=== PATIENT | female | born 1950 | race Caucasian/White ===

== ENCOUNTER 2016-12-24 17:17 | Emergency (ER) | payer OTHER, MEDICARE ==
[2016-12-24] MEDS ORDERED: ATORVASTATIN CA10 M1 PO (17:58)
[2016-12-24] MEDS ORDERED: ELIQUIS5 M1 PO (17:59)
[2016-12-24] MEDS ORDERED: LISINOPRIL10 M1 PO (17:59)
[2016-12-24] MEDS ORDERED: METOPROLOL SUCC50 M2 PO (17:59)
[2016-12-24] MEDS ORDERED: MULTAQ400 M1 PO (17:59)
[2016-12-24] MEDS ORDERED: CENTRUM SILVER1 EAC3 PO (18:00)
[2016-12-24] MEDS ORDERED: DONEPEZIL HCL10 M1 PO (18:00)
[2016-12-24] MEDS ORDERED: NAMENDA XR28 M1 PO (18:00)
[2016-12-24] MEDS ORDERED: CALCIUM600 M2 PO (18:01)
[2016-12-24] MEDS ORDERED: CALCIUM + D SO1 EACH PO (18:01)
--- NOTE | 2016-12-24 18:24 | ED MVC/FALL/TRAUMA COMPLAINT ---
History of Present Illness General Chief Complaint: Syncope and Near-Syncope Stated Complaint: BIBA NEAR SYNCOPE Source: patient, family Exam Limitations: dementia Vital Signs & Intake/Output Vital Signs & Intake/Output Vital Signs Date Time Temp Pulse Resp B/P Pulse O2 O2 Flow FiO2 Ox Delivery Rate 12/24 2202 96.4 62 16 111/60 95 Room Air 12/24 1944 99.8 84 18 113/60 98 Room Air Room Air 12/24 1937 70 113/60 12/24 1848 97.0 64 18 110/60 98 Room Air 12/24 1721 96.7 61 16 104/54 99 Room Air ED Intake and Output 12/25 0000 12/24 1200 Intake Total 1000 Output Total Balance 1000 Intake, IV 1000 Allergies Coded Allergies: No Known Allergies (12/24/16) Reconcile Medications Apixaban (Eliquis) 5 MG TABLET 1 TAB PO BID BLOOD THINNER (Reported) Atorvastatin Calcium 10 MG TABLET 1 TAB PO DAILY CHOLESTEROL (Reported) Calcium Carb/Vitamin D3/Vit K1 (Calcium + D Soft Chewable Tab) (Unknown Strength ) TAB.CHEW (Unknown Dose) PO DAILY SUPPLEMENT (Reported) Calcium Carbonate (Calcium) (Unknown Strength) TABLET (Unknown Dose) PO DAILY SUPPLEMENT (Reported) Donepezil HCl 10 MG TABLET 2 TAB PO DAILY MEMORY (Reported) Dronedarone HCl (Multaq) 400 MG TABLET 1 TAB PO BID HEART (Reported) Lisinopril 10 MG TABLET 1 TAB PO DAILY BP (Reported) Memantine HCl (Namenda XR) 28 MG CAP.SPR.24 1 CAP PO DAILY MEMORY (Reported) Metoprolol Succinate 50 MG TAB.ER.24H 1 TAB PO DAILY HEART/BP (Reported) Multivit-Min/FA/Lycopen/Lutein (Centrum Silver Tablet) 0.4 MG-300 MCG-250 MCG TABLET 1 TAB PO DAILY SUPPLEMENT (Reported) Triage Note: 66 YEAR OLD FEMALE BIBA S/P NEAR SYNCOPE. PER EMS PT FELL OUTSIDE OF [facility]. PT ARRIVES TO ED ALERT AND ORIENTED TO PERSON AND PLACE PER BASELINE. C-COLLAR IN PLACE, DENIES PAIN. BP 80/50 ON SCENE AFTER 1 LITER 104/60. PT STATES SHE DOES NOT REMEMBER IF SHE FELT DIZZY OR HAD CHEST PAIN AT TIME INCIDENT. PT HAS HISTORY OF DEMENTIA. RESIDENT TO BEDSIDE FOR EVAL. Triage Nurses Notes Reviewed? yes HPI: 66 yo F PMH HTN, HLD, CAD/HI (s/p stenting), A-fib (on eliquis), Dementia presenting with pre-syncope, fall. Patient was walking out of restaurant, complained of dizziness, grabbed onto nearby family member, slumped to the ground, (+) left frontal head trauma, no LOC. On EMS arrival BP 84/50, 1L NS given with improvement to 100s SBP. C/O mild left frontal head pain, denies associated fevers, chills, chest pain, SOB, palpitations, N/V/D/C, abdominal pain, urinary Sx. Hx of dementia, mild short term memory loss at baseline, does not seem more confused per family. (NEVIN FELICIANO,JEAN CARLOS) Past History Travel History Traveled to [place] past 21 day No Medical History Any Pertinent Medical History? see below for history Neurological: dementia Cardiovascular: AFIB, CAD Surgical History Surgical History: none Psychosocial History What is your primary language Albanian Tobacco Use: Never used Family History Hx Contributory? No (NEVIN FELICIANO,JEAN CARLOS) Review of Systems Review of Systems Constitutional: Reports: no symptoms. Eyes: Reports: no symptoms. Ears, Nose, Throat, Mouth: Reports: no symptoms. Respiratory: Reports: no symptoms. Cardiovascular: Reports: no symptoms. Gastrointestinal/Abdominal: Reports: no symptoms. Genitourinary: Reports: no symptoms. Musculoskeletal: Reports: no symptoms. Skin: Reports: no symptoms. All Other Systems: Reviewed and Negative (NEVIN FELICIANO,JEAN CARLOS) Physical Exam Physical Exam General Appearance: well developed/nourished, no apparent distress, alert, awake Head: evidence of injury, swelling, tenderness, Left frontal/supraorbital abrasion, hemostatic, mild TTP without crepitus or instability Eyes: Bilateral: normal appearance, PERRL, EOMI. Ears, Nose, Throat, Mouth: Tympanic normal Neck: no midline tenderness, C-collar in place Respiratory: normal breath sounds, chest non-tender, no respiratory distress Cardiovascular: regular rate/rhythm, normal peripheral pulses Peripheral Pulses: 2+ radial (R), 2+ radial (L), 2+ dorsalis pedis (R), 2+ dorsalis pedis (L) Gastrointestinal: normal bowel sounds, soft, non-tender Back: normal inspection, normal range of motion, no vertebral tenderness Extremities: normal range of motion Neurologic/Psych: no motor/sensory deficits, alert, oriented x 3 Skin: intact Core Measures ACS in differential dx? Yes Severe Sepsis Present: No Septic Shock Present: No (NEVIN FELICIANO,JEAN CARLOS) Progress Differential Diagnosis: C/T/L spine injury, ICH Plan of Care: Orders Procedure Date/time Status TROPONIN LEVEL 12/24 2099 Complete EKG 12/24 2099 Active MISTAKE 12/24 193 Active TROPONIN LEVEL 12/24 173 Complete CBC WITHOUT DIFFERENTIAL 12/24 173 Complete BASIC METABOLIC PANEL 12/24 173 Complete EKG 12/24 172 Active Current Medications Sig/Aliya Start time Last Medication Dose Stop Time Status Admin Tetanus/Reduced 0.5 ML ONCE ONE 12/24 1829 CAN Diphtheria/Acell 12/24 1830 Pertussis (Adacel) Laboratory Tests 12/24/162133: Troponin I < 0.01 12/24/161818: Anion Gap 11, Estimated GFR 50 L, BUN/Creatinine Ratio 20.9, Glucose 72, Calcium 8.8, Troponin I < 0.01 12/24/161809: CBC w Diff NO MAN DIFF REQ, RBC 4.10 L, MCV 92.1, MCH 31.2 H, RDW 12.8, MPV 8.0, Gran % 76.8 H, Lymphocytes % 14.8 L, Monocytes % 7.5, Eosinophils % 0.6, Basophils % 0.3, Absolute Granulocytes 6.7 H, Absolute Lymphocytes 1.3, Absolute Monocytes 0.6, Absolute Eosinophils 0.1, Absolute Basophils 0, PUBS MCHC 33.9 Physician MDM: 66 yo F presenting with pre-syncope, head trauma on [facility]. VSS, SBP 100s, trauma exam as above. DDx: ICH, soft tissue injury, less likely facial bone Fx, c-spine injury, orthostasis, less likel arrhythmia, ACS. ECG sinus rhythm, non-ischemic, Troponin <0.01. BMP with mild Cr elevation to 1.1. 1L NS given with SBP in 100s. CT C-spine and head negative, c-collar cleared with full ROM without pain. Plan for 2nd troponin, if negative and patient ambulatory at baseline D/C home with return precautions. D/W Dr. Bonilla. (NEVIN FELICIANO,JEAN CARLOS) 12/24/2016 7:43:51 PM Patient signed out to me by Dr. Rooeny. CT head and neck are negative. Patient informed she will stay for a second troponin at 9:00. Orthostatic vital signs ordered. 22:30 Repeat troponin negative. EKG unchanged. She will follow up with her electrical discharge machine operator this week. (MAX FELICIANO,SAM) Diagnostic Imaging: Discussed w/RAD: CT Scan. (NEVIN FELICIANO,JEAN CARLOS) Diagnostic Imaging: Viewed by Me: CT Scan. Discussed w/RAD: CT Scan. Radiology Impression: PATIENT: ORALIA NIETO PRESENT AGE: 66 PATIENT ACCOUNT NO: [id number] : 49 LOCATION: [facility] ORDERING PHYSICIAN: JEAN CARLOS ROONEY MD SERVICE DATE: 12/24/16 EXAM TYPE : CAT - CT CERV SPINE WO IV CONTRAST; CT HEAD WO IV CONTRAST EXAMINATION: CT HEAD WITHOUT CONTRAST CT CERVICAL SPINE WITHOUT CONTRAST CLINICAL INFORMATION: Head pain. Trauma on Eliquis. Neck pain. COMPARISON: None. TECHNIQUE: Axial noncontrast images of the head and cervical spine were obtained. Reformatted images were reviewed. DLP: 916 mGy-cm. FINDINGS: HEAD CT: No territorial infarction or acute intracranial hemorrhage. No extra-axial fluid collection. No mass effect or midline shift. No hydrocephalus. Mild periventricular and subcortical white matter hypoattenuation is nonspecific and likely chronic. No calvarial fracture. No subgaleal hematoma. Paranasal sinuses and mastoid air cells are fairly well aerated. CERVICAL SPINE CT: No fracture or dislocation. No prevertebral soft tissue swelling. No widening of the atlantooccipital or atlantoaxial intervals. No evidence of traumatic spondylolisthesis; chronic- appearing grade 1 anterolisthesis of C7 on T1. Multilevel degenerative endplate changes with posterior disc osteophyte complexes. Multilevel disc space narrowing. Multilevel facet arthropathy and uncovertebral joint spurring. IMPRESSION: 1. No acute intracranial pathology. 2. No acute cervical spine pathology. 3. Moderate degenerative changes of the cervical spine. DICTATED BY: CHRISTINE GUTIÉRREZ MD DATE/TIME DICTATED:12/24/161848 RADIO ARTIST:SADI DATE/TIME TRANSCRIBED:12/24/161848 CONFIDENTIAL, DO NOT COPY WITHOUT APPROPRIATE AUTHORIZATION. <Electronically signed in Other Vendor System> SIGNED BY: CHRISTINE GUTIÉRREZ MD 12/24/16 5921 Initial ED EKG: NSR Repeat EKG: unchanged (MAX FELICIANO,SAM) Departure Departure Disposition: HOME OR SELF CARE Condition: Stable Referrals: LEANDRO FELICIANO,KASSANDRA Dailey (PCP/Family) Departure Forms: Customer Survey General Discharge Information (NEVIN FELICIANO,JEAN CARLOS) Departure Time of Disposition: 2233 Clinical Impression Primary Impression: Facial laceration Qualifiers: Encounter type: initial encounter Qualified Code: S01.81XA - Laceration without foreign body of other part of head, initial encounter Secondary Impressions: Closed head injury Qualifiers: Encounter type: initial encounter Qualified Code: S09.90XA - Unspecified injury of head, initial encounter Fall Qualifiers: Encounter type: initial encounter Qualified Code: W19.XXXA - Unspecified fall, initial encounter Syncopal episodes Additional Instructions: Follow-up with your electrical discharge machine operator in the office this week. Please return to the ER for any changing or worsening symptoms. (MAX FELICIANO,SAM)
[2016-12-24 18:49] LABS: ABSOLUTE BASOPHIL COUNT 0 /CUMM (0.0-0.2); ABSOLUTE EOSINOPHIL COUNT 0.1 /CUMM (0.0-0.7); ABSOLUTE GRANULOCYTE CT 6.7 /CUMM (1.4-6.5); ABSOLUTE LYMPH COUNT 1.3 /CUMM (1.2-3.4); ABSOLUTE MONOCYTE COUNT 0.6 /CUMM (0.10-0.60); BASOPHIL % 0.3 % (0.0-2.0); EOSINOPHIL % 0.6 % (0-5); GRANULOCYTE % 76.8 % (42.2-75.2); HEMATOCRIT 37.8 % (37-47); MEAN CORPUSCULAR HGB 31.2 PG (27.0-31.0); MEAN CORPUSCULAR HGB CONC 33.9 G/DL (33.0-37.0); MEAN CORPUSCULAR VOLUME 92.1 FL (81.0-99.0); PLATELET COUNT 272 /CUMM (130-400); RBC DISTRIBUTION WIDTH 12.8 % (11.5-14.5); WHITE BLOOD CELL COUNT 8.7 /CUMM (4.8-10.8)
--- NOTE | 2016-12-24 19:08 | CT SCAN REPORT ---
EXAMINATION: CT HEAD WITHOUT CONTRAST CT CERVICAL SPINE WITHOUT CONTRAST CLINICAL INFORMATION: Head pain. Trauma on Eliquis. Neck pain. COMPARISON: None. TECHNIQUE: Axial noncontrast images of the head and cervical spine were obtained. Reformatted images were reviewed. DLP: 916 mGy-cm. FINDINGS: HEAD CT: No territorial infarction or acute intracranial hemorrhage. No extra-axial fluid collection. No mass effect or midline shift. No hydrocephalus. Mild periventricular and subcortical white matter hypoattenuation is nonspecific and likely chronic. No calvarial fracture. No subgaleal hematoma. Paranasal sinuses and mastoid air cells are fairly well aerated. CERVICAL SPINE CT: No fracture or dislocation. No prevertebral soft tissue swelling. No widening of the atlantooccipital or atlantoaxial intervals. No evidence of traumatic spondylolisthesis; chronic-appearing grade 1 anterolisthesis of C7 on T1. Multilevel degenerative endplate changes with posterior disc osteophyte complexes. Multilevel disc space narrowing. Multilevel facet arthropathy and uncovertebral joint spurring. IMPRESSION: 1. No acute intracranial pathology. 2. No acute cervical spine pathology. 3. Moderate degenerative changes of the cervical spine.
[2016-12-24 22:02] VITALS: BP 111/60
== END 2016-12-24 22:52 ==
LOC: ERH 17:17
PROVIDERS: Student in an Organized Health Care Education/Training Program
DX: S01.81XA Laceration without foreign body of other part of head, initial encounter (principal); S09.90XA Unspecified injury of head, initial encounter; R55 Syncope and collapse; W19.XXXA Unspecified fall, initial encounter; Y93.01 Activity, walking, marching and hiking; Y92.511 Restaurant or cafe as the place of occurrence of the external cause
CPT/HCPCS: 90471; 90714; 93005; 93010